=== PATIENT | male | born 1975 | race Caucasian/White ===

== ENCOUNTER 2016-12-20 14:23 | Emergency (ER) | payer OTHER | END 2016-12-20 18:07 | disposition home or self-care (01) | LOC: ER 14:23 | DX: R17 Unspecified jaundice (principal); E88.09 Other disorders of plasma-protein metabolism, not elsewhere classified; R60.0 Localized edema; I10 Essential (primary) hypertension; R94.5 Abnormal results of liver function studies; F17.210 Nicotine dependence, cigarettes, uncomplicated | CPT/HCPCS: 36415; J1940 ==